=== PATIENT | female | born 1995 | race African-American/Black ===

== ENCOUNTER 2017-01-03 12:23 | Emergency (ER) | payer MEDICAID ==
[2017-01-03 12:24] VITALS: BP 128/78; PULSE 80; RESP 12; TEMP 98; O2SAT 98
--- NOTE | 2017-01-03 12:32 | PD ---
Physical Exam Date Seen by Provider: Jan 03, 2017 Time Seen by Provider: 12:31 Narrative 21-year-old female presents to the emergency department with several day history of dysuria. She denies nausea, vomiting, flank pain,, or vaginal discharge. She has no known drug allergies. Data Data Last Documented VS Vital Signs Date Time Temp Pulse Resp B/P (MAP) Pulse Ox O2 Delivery O2 Flow Rate FiO2 01/03/17 12:24 98.0 80 12 128/78 (95) 98 Orders Orders Gc And Chlamydia Pcr (01/03/17 12:30) Urinalysis - C+S If Indicated (01/03/17 12:30) Ed Urine Pregnancytest Poc (01/03/17 12:30) MDM Medical Record Reviewed: Yes Supervised Visit with NAT: Yes Narrative Course Vitals are stable. Urinalysis, urine , and urine GC ordered. Patient awaiting bed placement. Condition: Stable Rasta Vaughn Jan 03, 2017 12:32
[2017-01-03 13:19] LABS: BACTERIA, URINE OCC /hpf; BLOOD, URINE TRACE (NEG); COMMENT (UR) CULTURE INDICATED; CULTURE IF INDICATED CULTURE INDICATED; GLUCOSE,URINE NEG (NEG); KETONE, URINE NEG (NEG); MUCUS URINE FEW /lpf (OCC); NITRITE,URINE NEG (NEG); PH, URINE 6.5 (5.0-8.5); SQUAMOUS EPITHELIAL CELL URINE 7 /hpf (0-5); URINE COLOR YELLOW (YELLW/STRAW)
[2017-01-03] MEDS ORDERED: CEPH-460 PO (14:27)
[2017-01-03] MEDS ORDERED: PHEN0.4T PO (14:27)
--- NOTE | 2017-01-03 14:27 | PD ---
HPI Chief Complaint: Complaint Time Seen by Provider: 14:22 Travel History International Travel<30 days: No Contact w/Intl Traveler<30days: No Traveled to known affect area: No History of Present Illness HPI 21-year-old female presents to the emergency Department with complaint of dysuria for the past 2-3 days. Denies abdominal pain, pelvic pain, vaginal discharge, fevers, low back pain, vomiting. Says she always has urinary frequency and it is not anymore than it normally is. Reports urinary hesitancy. As menstrual period was beginning of this month. Is on Depo- Provera for contraception. Is not taking any medication or tried any treatments to alleviate her symptoms. No known aggravating or relieving factors. No known allergies. Symptoms are mild in severity. Has no other medical complaints. No other modifying factors or associated signs and symptoms. PFSH Past Medical History Medical History: Denies Significant Hx Tetanus Vaccination: Unknown Influenza Vaccination: No ?: Not Past Surgical History Surgical History: No Previous Surgery Social History Alcohol Use: No Tobacco Use: No Substance Use: No Allergies-Medications (Allergen,Severity, Reaction): Coded Allergies: No Known Allergies (Unverified , 01/03/17) Reported Meds & Prescriptions Reported Meds & Active Scripts Active Pyridium (Phenazopyridine HCl) 100 Mg Tab 100 Mg PO Q8H PRN 3 Days Keflex (Cephalexin) 500 Mg Cap 500 Mg PO Q12H 7 Days Review of Systems Except as stated in HPI: all other systems reviewed are Neg Physical Exam Narrative GENERAL: Well-nourished, well-developed black female female patient, in no acute distress; afebrile, nontoxic-appearing SKIN: Warm and dry. No rash. HEAD: Atraumatic. Normocephalic. EYES: Pupils equal and round. No scleral icterus. No injection or drainage. ENT: Mucosa pink and moist. NECK: Trachea midline. CARDIOVASCULAR: Regular rate. RESPIRATORY: No accessory muscle use. GASTROINTESTINAL: Abdomen soft, non-tender, nondistended. Hepatic and splenic margins not palpable. Bowel sounds are active 4 quadrants. Bladder nontender and nondistended. MUSCULOSKELETAL: No obvious deformities. No clubbing. No cyanosis. No edema. BACK: No CVA tenderness NEUROLOGICAL: Awake and alert. Oriented 3. No obvious cranial nerve deficits. Motor grossly within normal limits. Normal speech. Moves all extremities. 5/5 strength to all extremities. PSYCHIATRIC: Appropriate mood and affect; insight and judgment normal. Data Data Last Documented VS Vital Signs Date Time Temp Pulse Resp B/P (MAP) Pulse Ox O2 Delivery O2 Flow Rate FiO2 01/03/17 12:24 98.0 80 12 128/78 (95) 98 Orders Orders Gc And Chlamydia Pcr (01/03/17 12:30) Urinalysis - C+S If Indicated (01/03/17 12:30) Ed Urine Pregnancytest Poc (01/03/17 12:30) Urine Culture (01/03/17 12:45) Ed Discharge Order (01/03/17 14:28) Labs Laboratory Tests Test 01/03/17 12:45 Urine Color YELLOW Urine Turbidity HAZY Urine pH 6.5 Urine Specific [place] 1.029 Urine Protein TRACE mg/dL Urine Glucose (UA) NEG mg/dL Urine Ketones NEG mg/dL Urine Occult Blood TRACE Urine Nitrite NEG Urine Bilirubin NEG Urine Urobilinogen 2.0 MG/DL Urine Leukocyte Esterase LARGE Urine RBC 11 /hpf Urine WBC 171 /hpf Urine Squamous Epithelial Cells 7 /hpf Urine Bacteria OCC /hpf Urine Mucus FEW /lpf Microscopic Urinalysis Comment CULTURE INDICATED MDM Medical Decision Making Medical Screen Exam Complete: Yes Emergency Medical Condition: Yes Medical Record Reviewed: Yes Differential Diagnosis UTI, cystitis, pyelonephritis Narrative Course 21-year-old female with dysuria for 2-3 days. Patient is afebrile and nontoxic- appearing. Denies vaginal discharge, abdominal pain, pelvic pain. Denies fever or vomiting. No CVA tenderness on exam. UPT negative. Urinalysis, voided chlamydia and gonorrhea ordered in triage. 1424: Urinalysis was signs of infection. Urine Chlamydia and gonorrhea pending. Keflex and Pyridium prescribed for home. Instructed patient to follow up with primary care provider. Patient verbalizes understanding and agreement with treatment plan. Patient is medically cleared and stable for discharge. Discussed reasons to return to the emergency department. Patient agrees with treatment plan. The patients vital signs are stable and the patient is stable for outpatient follow-up and treatment. Patient discharged home, stable and in no acute distress. Diagnosis Primary Impression: Urinary tract infection Qualified Codes: N39.0 - Urinary tract infection, site not specified Referrals: Primary Care Physician Patient Instructions: General Instructions, Urinary Tract Infection in Women ( ED) Departure Forms: Tests/Procedures, Work Release Enter return to work date: Jan 04, 2017 Additional Instructions: Take antibiotics as prescribed and complete full course Take Pyridium for bladder spasms: Pyridium will turn your urine bright orange Drink plenty of fluids Maintain good personal hygiene Follow-up with primary care provider Return to the emergency department immediately with worsening of symptoms Med/Other Pt SpecificInfo: Prescription(s) given Scripts Phenazopyridine (Pyridium) 100 Mg Tab 100 MG PO Q8H Y for DYSURIA for 3 Days, #9 TAB 0 Refills Prov: Abbi Sawyer 01/03/17 Cephalexin (Keflex) 500 Mg Cap 500 MG PO Q12H for Infection for 7 Days, #14 CAP 0 Refills Prov: Abbi Sawyer 01/03/17 Disposition: 01 DISCHARGE HOME Condition: Stable Abbi Sawyer Jan 03, 2017 14:27
[2017-01-03 16:01] LABS: CHLAMYDIA PCR NOT DETECTED (NOT DETECT); NEISSERIA PCR DETECTED (NOT DETECT)
== END 2017-01-03 15:00 | disposition home or self-care (01) ==
LOC: NEPK 12:23
DX: N39.0 Urinary tract infection, site not specified (principal); Z79.899 Other long term (current) drug therapy
CPT/HCPCS: 81001; 84703; 87086; 87491; 87591; 99284

== ENCOUNTER 2017-01-04 11:41 | Emergency (ER) | payer MEDICAID ==
[~2017-01-04] VITALS: Ht 165.1 cm; Wt 62.0 kg
[~2017-01-04 11:41] MED LIST: CEPH-460 PO; PHEN0.4T PO
[2017-01-04 11:42] VITALS: BP 135/82; PULSE 111; RESP 20; TEMP 98.5; O2SAT 100
--- NOTE | 2017-01-04 11:54 | PD ---
HPI Chief Complaint: Medical Clearance Time Seen by Provider: 11:52 Travel History International Travel<30 days: No Contact w/Intl Traveler<30days: No Traveled to known affect area: No History of Present Illness HPI 21-year-old female presents to the emergency department for treatment for positive urine gonorrhea test. I saw this patient yesterday and treated her for urinary tract infection. He continues to deny vaginal discharge, odor, itch , lesions. Denies fever, vomiting, abdominal pain. Started taking prescribed medications of Keflex and Pyridium for UTI last night. Says she still having some mild dysuria. Symptoms are mild in severity. No known aggravating factors. Has no other medical complaints. No known allergies. No other modifying factors or associated signs and symptoms. PFSH Past Medical History ?: Not Social History Alcohol Use: No Tobacco Use: No Substance Use: No Allergies-Medications (Allergen,Severity, Reaction): Coded Allergies: No Known Allergies (Unverified , 01/04/17) Reported Meds & Prescriptions Reported Meds & Active Scripts Active Pyridium (Phenazopyridine HCl) 100 Mg Tab 100 Mg PO Q8H PRN 3 Days Keflex (Cephalexin) 500 Mg Cap 500 Mg PO Q12H 7 Days Review of Systems Except as stated in HPI: all other systems reviewed are Neg Physical Exam Narrative GENERAL: Well-nourished, well-developed black female patient, in no acute distress SKIN: Warm and dry. HEAD: Atraumatic. Normocephalic. EYES: Pupils equal and round. No scleral icterus. No injection or drainage. ENT: Mucosa pink and moist. Airway patent. NECK: Trachea midline. CARDIOVASCULAR: Regular rate. RESPIRATORY: No accessory muscle use. GASTROINTESTINAL: Flat. MUSCULOSKELETAL: No obvious deformities. No clubbing. No cyanosis. No edema. NEUROLOGICAL: Awake and alert. Oriented 3. No obvious cranial nerve deficits. Motor grossly within normal limits. Normal speech. PSYCHIATRIC: Appropriate mood and affect; insight and judgment normal. Data Data Last Documented VS Vital Signs Date Time Temp Pulse Resp B/P (MAP) Pulse Ox O2 Delivery O2 Flow Rate FiO2 01/04/17 11:42 98.5 111 20 135/82 (99) 100 Room Air Orders Orders Ceftriaxone Inj (Rocephin Inj) (01/04/17 12:00) Lidocaine 1% Inj (50 Ml) (Xylocaine 1% I (01/04/17 12:00) Metronidazole (Flagyl) (01/04/17 12:00) Ed Discharge Order (01/04/17 11:54) [facility] Medical Decision Making Medical Screen Exam Complete: Yes Emergency Medical Condition: Yes Medical Record Reviewed: Yes Differential Diagnosis Medical clearance, chlamydia, gonorrhea, Trichomonas Narrative Course Is a 21-year-old female that I saw yesterday for dysuria and treated for UTI with Keflex. The patient's urine gonorrhea was positive and she was called back for treatment. She continues to deny vaginal discharge, odor. I spoke with Dr. leonardo, my attending physician, and she agrees with my plan of care. I will treat the patient with Rocephin for the gonorrhea and Flagyl for possibility of trichomoniasis. Rocephin and Flagyl ordered and administered in the ER. Instructed patient to continue Keflex as prescribed. Instructed patient to follow up with primary care provider. Patient verbalizes understanding and agreement with treatment plan. Patient is medically cleared and stable for discharge. Discussed reasons to return to the emergency department. Patient agrees with treatment plan. The patients vital signs are stable and the patient is stable for outpatient follow-up and treatment. Patient discharged home, stable and in no acute distress. Diagnosis Primary Impression: Gonorrhea Referrals: Senior Catering Sales Manager [facility] Primary Care Physician Patient Instructions: General Instructions, Gonorrhea (ED), Sexually Transmitted Diseases (ED) Additional Instructions: Avoid sexual activity for up to 14 days; no sexual activity with recent sexual partners until they have been treated and wait 14 days also Inform all sexual partners within the past 3-6 months that they need to be evaluated and treated Use condoms every time you have sex Follow-up with primary care provider Follow-up with dictaphone transcriber Follow-up with the [facility] for further STD screening Return to the emergency department immediately with worsening of symptoms Med/Other Pt SpecificInfo: No Change to Meds, No Meds Exist/No RX given Disposition: 01 DISCHARGE HOME Condition: Stable Abbi Sawyer Jan 04, 2017 11:53
[2017-01-04] MEDS ORDERED: metroNIDAZOLE 500 MG TAB PO ONE (12:00)
[2017-01-04] MEDS ORDERED: cefTRIAXone 250 MG VIAL IM ONE (12:00)
[2017-01-04] MEDS ORDERED: LIDOCAINE HCL 1% 50 ML VIAL IM ONE (12:00)
== END 2017-01-04 12:38 | disposition home or self-care (01) ==
LOC: NEPD 11:41
DX: A54.9 Gonococcal infection, unspecified (principal)
CPT/HCPCS: 96372; 99284; J0696